=== PATIENT | female | born 1995 ===

== ENCOUNTER 2018-09-14 23:01 | Emergency (ER) | payer OTHER ==
[~2018-09-14] VITALS: Ht 167.6 cm; Wt 57.6 kg
[2018-09-14] MEDS ORDERED: PRENATAL + DHA1 EAC1 (23:12)
[2018-09-15] MEDS ORDERED: ZOFRAN ODT4 MG PO (07:18)
[2018-09-15] MEDS ORDERED: PEPCID40 MG PO (07:18)
== END 2018-09-15 07:38 ==
LOC: ER 23:01
DX: O9A.212 Injury, poisoning and certain other consequences of external causes complicating pregnancy, second trimester (principal); T61.781A Other shellfish poisoning, accidental (unintentional), initial encounter; R10.9 Unspecified abdominal pain; E86.0 Dehydration; Y92.89 Other specified places as the place of occurrence of the external cause; Z34.82 Encounter for supervision of other normal pregnancy, second trimester

== ENCOUNTER → 2018-11-13 | Outpatient (CLI) | payer OTHER ==
[~2018-11-13] MED LIST: PEPCID40 MG PO; PRENATAL + DHA1 EAC1; ZOFRAN ODT4 MG PO
== END | disposition home or self-care (01) ==
LOC: LAB 16:53
DX: Z34.00 Encounter for supervision of normal first pregnancy, unspecified trimester (principal)

== ENCOUNTER 2019-01-08 13:39 | Inpatient (IN) | payer OTHER ==
[~2019-01-08] VITALS: Ht 167.6 cm; Wt 68.0 kg
== END 2019-02-19 13:32 | disposition home or self-care (01) | DRG 807 ==
LOC: EDSTATUS 01-22 09:15 → OB/GYN 01-22 09:15 → ADM 01-22 09:15 → LDR 02-17 06:04 → OB/GYN 02-17 19:32
PROVIDERS: ADMIT Obstetrics & Gynecology
PROC: 10E0XZZ Delivery of Products of Conception, External Approach (ICD-10-PCS; principal; 2019-02-17)
PROC: 0KQM0ZZ Repair Perineum Muscle, Open Approach (ICD-10-PCS; 2019-02-17)
PROC: 3E0P7VZ Introduction of Hormone into Female Reproductive, Via Natural or Artificial Opening (ICD-10-PCS; 2019-02-17)
PROC: 4A1HXCZ Monitoring of Products of Conception, Cardiac Rate, External Approach (ICD-10-PCS; 2019-02-17)
DX: O70.1 Second degree perineal laceration during delivery (principal); Z37.0 Single live birth; Z3A.39 39 weeks gestation of pregnancy

== ENCOUNTER 2019-01-15 22:09 | Outpatient (CLI) | payer OTHER | END 2019-01-16 10:21 | disposition home or self-care (01) | LOC: OBS/DEL 22:09 | DX: O60.03 Preterm labor without delivery, third trimester (principal); O23.593 Infection of other part of genital tract in pregnancy, third trimester; N76.0 Acute vaginitis; Z34.03 Encounter for supervision of normal first pregnancy, third trimester ==

== ENCOUNTER 2019-01-31 22:45 | Outpatient (CLI) | payer OTHER | END 2019-02-01 11:02 | disposition HB | LOC: OBS/DEL 22:45 | DX: O47.1 False labor at or after 37 completed weeks of gestation (principal); Z34.03 Encounter for supervision of normal first pregnancy, third trimester ==

== ENCOUNTER 2019-04-10 17:24 | Emergency (ER) | payer OTHER ==
[~2019-04-10] VITALS: Ht 167.6 cm; Wt 59.0 kg
== END 2019-04-10 20:47 | disposition home or self-care (01) ==
LOC: ER 17:24
DX: M54.5 Low back pain (principal)

== ENCOUNTER 2019-05-30 18:45 | Emergency (ER) | payer OTHER ==
[~2019-05-30] VITALS: Ht 167.6 cm; Wt 61.7 kg
== END 2019-05-30 21:59 | disposition home or self-care (01) ==
LOC: ER 18:45
DX: J06.9 Acute upper respiratory infection, unspecified (principal)